=== PATIENT | female | born 1960 | race Caucasian/White ===

== ENCOUNTER 2016-09-19 14:09 | Outpatient (CLI) ==
[2015-06-07 01:53] VITALS: BMI 39.9
[2016-09-19 15:01] LABS: ALBUMIN 3.6 g/dL (3.4-5.0); ALBUMIN/GLOBULIN RATIO 0.97; ANION GAP 14.2; BILIRUBIN,TOTAL 0.49 mg/dL (0.00-1.20); BUN/CREATININE RATIO 12.14; CALCIUM 10.4 mg/dL (8.2-10.2); CHOL/HDL RATIO 7.3 (4.5-5.5); CREATININE 1.4 mg/dL (0.60-1.30); POTASSIUM 4.2 mmol/L (3.5-5.10); TOTAL PROTEIN 7.3 g/dL (6.4-8.2)
== END 2016-09-19 14:10 | disposition home or self-care (01) ==
LOC: LAB 14:09
PROVIDERS: ATTEND Physician Assistant
DX: E78.2 Mixed hyperlipidemia (principal); I10 Essential (primary) hypertension; E66.01 Morbid (severe) obesity due to excess calories
CPT/HCPCS: 36415; 80053; 80061

== ENCOUNTER 2016-10-28 14:33 | Outpatient (CLI) ==
[2015-06-07 01:53] VITALS: BMI 39.9
[2016-10-28 16:02] LABS: ALBUMIN 3.4 g/dL (3.4-5.0); ALBUMIN/GLOBULIN RATIO 0.94; ANION GAP 15.8; BILIRUBIN,TOTAL 0.43 mg/dL (0.00-1.20); BUN/CREATININE RATIO 12.14; CALCIUM 9.8 mg/dL (8.2-10.2); CREATININE 1.4 mg/dL (0.60-1.30); FOLATE 3.2 ng/mL (3.1-20.5); POTASSIUM 3.8 mmol/L (3.5-5.10)
== END 2016-10-28 14:34 | disposition home or self-care (01) ==
LOC: LAB 14:33
PROVIDERS: ATTEND Nurse Practitioner
DX: R13.10 Dysphagia, unspecified (principal); E78.1 Pure hyperglyceridemia; E11.9 Type 2 diabetes mellitus without complications; R53.83 Other fatigue
CPT/HCPCS: 36415; 80053; 82306; 82607; 82746; 83036; 84439; 84443

== ENCOUNTER 2016-12-29 12:55 | Outpatient (CLI) ==
[2015-06-07 01:53] VITALS: BMI 39.9
--- NOTE | 2016-12-30 10:39 | MAMMO ---
EXAM: Bilateral digital screening mammogram History: Baseline screening Findings: MLO and CC views of bilateral breasts demonstrate predominately fatty replaced breast par enchyma. There is an asymmetry seen within the right breast central to the nipple anterior depth. No suspicious microcalcifications. Impression: Indeterminate right breast asymmetry. Recommend further evaluation with spot compressi on views and possible ultrasound. BIRADS 0
== END 2016-12-29 12:56 | disposition home or self-care (01) ==
LOC: RAD 12:55
PROVIDERS: ATTEND Physician Assistant Medical
DX: Z12.31 Encounter for screening mammogram for malignant neoplasm of breast (principal)

== ENCOUNTER 2017-01-02 10:44 | Outpatient (CLI) ==
[2015-06-07 01:53] VITALS: BMI 39.9
--- NOTE | 2017-01-02 11:25 | MAMMO ---
EXAM: Right digital diagnostic mammogram Comparison: Bilateral screening mammogram 12/29/2016 Findings: Right breast density is predominately fatty. Additional spot compression views of the ri ght breast in the MLO and CC projections confirm the right breast anterior asymmetry or nodule. No suspicious microcalcifications. Impression: Indeterminate right breast asymmetry or nodule. Recommend further evaluation with ultr asound. BIRADS 0
--- NOTE | 2017-01-02 12:01 | US ---
EXAM: Right breast ultrasound. History: Right breast asymmetry. Comparison: Right diagnostic mammogram 01/02/2017 Technique: Multiple sonographic images through the right breast were obtained. Color duplex Dopple r was used to interrogate vascular flow. Findings: At 6 o'clock 3 cm from nipple, there is a 0.5 cm anechoic simple cyst. This correlates w ith mammography. Impression: Benign 6 o'clock right breast cyst. Recommend return to routine screening mammography schedule. BIRADS 2
== END 2017-01-02 10:45 | disposition home or self-care (01) ==
LOC: RAD 10:44
PROVIDERS: ATTEND Physician Assistant Medical
DX: R92.8 Other abnormal and inconclusive findings on diagnostic imaging of breast (principal)

== ENCOUNTER 2017-04-14 07:02 | Outpatient (CLI) ==
[2015-06-07 01:53] VITALS: BMI 39.9
[2017-04-14 07:36] LABS: CREATININE 1.67 mg/dL (0.60-1.30)
--- NOTE | 2017-04-14 09:38 | CT ---
EXAM: CT of the abdomen pelvis with and without contrast History: Abdominal pain. Comparison: CT abdomen pelvis 01/08/2015 Technique: Multiplanar CT images through the abdomen pelvis were obtained with and without the admi nistration of IV contrast Findings: Lung bases are clear. No acute osseous abnormalities. Degenerative changes of the spine. No renal stones and no hydronephrosis. The right kidney is smaller than the left. Splenules again seen within the left upper quadrant. The liver is fatty. No peripancreatic inflammation. Stable t iny benign right adrenal nodule. Left adrenal gland is unremarkable. No bowel obstruction. 5.8 cm fat containing ventral hernia. No bowel obstruction. The appendix is normal. No bladder wall thi ckening. No abnormal enhancement of the pancreas. No discrete gallstones identified by CT. No free air and no ascites. No perirectal inflammation. Adnexal structures appear appropriate for patient' s age. Impression: 1. No acute intra-abdominal or pelvic process. 2. Enlarged fatty liver. 3. Fat-containing ventral hernia. 4. Stable tiny benign right adrenal adenoma.
== END 2017-04-14 07:03 | disposition home or self-care (01) ==
LOC: RAD 07:02
PROVIDERS: ATTEND Physician Assistant Medical
DX: R10.9 Unspecified abdominal pain (principal)
CPT/HCPCS: 36415; 82565

== ENCOUNTER 2017-04-20 11:54 | Emergency (ER) ==
[2017-04-20 12:01] VITALS: BP 162/89; TEMP 100.1; BMI 43.2
[2017-04-20] MEDS ORDERED: TORADOL IM STA (12:14)
[2017-04-20 12:35] LABS: BASOPHILS # (AUTO) 0.1 K/uL (0-0.2); BASOPHILS % (AUTO) 0.7 % (0.0-3.0); EOSINOPHILS # (AUTO) 0.6 K/ul (0.0-0.7); EOSINOPHILS % (AUTO) 4.2 % (0.0-7.0); HEMATOCRIT 41.7 % (37.0-47.0); HEMOGLOBIN 14.2 g/dl (12.0-16.0); IMMATURE GRANULOCYTE % (AUTO) 0.2 % (0.0-5.0); LYMPHOCYTES # (AUTO) 3.8 K/uL (0.60-3.4); MEAN CORPUSCULAR HEMOGLOBIN 32.1 pg (27.0-31.0); MEAN CORPUSCULAR HGB CONC 34.1 (31.8-35.4); MEAN CORPUSCULAR VOLUME 94.3 fl (81.0-99.0); MONOCYTES # (AUTO) 0.9 K/uL (0.4-2.0); MONOCYTES % (AUTO) 6.3 (0-10); NEUTROPHILS # (AUTO) 8.3 K/ul (2.0-6.9); NEUTROPHILS % (AUTO) 60.6; PLATELET COUNT 284 10^3/uL (140-440); RED BLOOD COUNT 4.42 10^6/ul (4.20-5.40); WHITE BLOOD COUNT 13.71 K/ul (4.6-10.2)
[2017-04-20 12:48] LABS: BILIRUBIN,URINE 1+ (NEGATIVE); KETONES,URINE Trace (NEGATIVE); LEUKOCYTE ESTERASE ,URINE 1+ (NEGATIVE); NITRITE,URINE Negative (NEGATIVE); PROTEIN,URINE 3+ (NEGATIVE); URINE, BLOOD 3+ (NEGATIVE)
[2017-04-20 12:53] LABS: ALBUMIN 3.9 g/dL (3.4-5.0); ALBUMIN/GLOBULIN RATIO 1.11; ANION GAP 18.5; BILIRUBIN,TOTAL 0.46 mg/dL (0.00-1.20); BUN/CREATININE RATIO 6.7; CALCIUM 10.4 mg/dL (8.2-10.2); CREATININE 1.64 mg/dL (0.60-1.30); POTASSIUM 3.5 mmol/L (3.5-5.10); TOTAL PROTEIN 7.4 g/dL (6.4-8.2)
[2017-04-20 12:57] LABS: ADD URINE MICROSCOPIC YES
[2017-04-20 13:05] VITALS: BMI 43.2
--- NOTE | 2017-04-20 13:45 | CT ---
EXAM: CT of the abdomen pelvis without contrast History: Abdominal pain. Comparison: CT abdomen pelvis 04/14/2017 Technique: Multiplanar CT images through the abdomen pelvis were obtained without the administration of IV contrast Findings: Subsegmental atelectasis seen at the lung bases. No acute osseous abnormalities. Enlarged fatty liver. No discrete gallstones identified by CT. Mild atherosclerotic vascular calci fications. No peripancreatic inflammation. Stable small benign right adrenal adenoma. Left adrena l gland is unremarkable. No renal stones and no hydronephrosis. Splenules are again seen. No joaquín l obstruction. No free air. No ascites. No change in the fat containing ventral hernia. Bladder is not well distended. Adnexal structures appear appropriate for patient's age. No perirectal inflam mation. The appendix is not dilated or inflamed. Impression: 1. No acute intra-abdominal or pelvic process. 2. Enlarged fatty liver. 3. Stable small benign right adrenal adenoma. 4. No change in the fat containing ventral hernia.
[2017-04-20] MEDS ORDERED: LIDOCAINE 1 % AMP 5 ML (SUTURES) IM STA (14:02)
[2017-04-20] MEDS ORDERED: ROCEPHIN IM STA (14:02)
--- NOTE | 2017-04-20 14:06 | ED.PDOC ---
General ED Provider: Dr. CRICKET PAK Chief Complaint: Urinary Problem Stated Complaint: dysuria Time Seen by Physician: 12:00 (seen with nursing staff at all times ) Mode of Arrival: Walk-In Information Source: Patient Exam Limitations: No limitations Primary Care Provider: HEMALATHA NAPIER Nursing and Triage Documentation Reviewed and Agree: Yes Complaint Exam - Complaint/Exam Patient Complains of: Reports: Dysuria Onset/Duration: 3 days Symptoms Are: Still present Timing: Intermittent Initial Severity: Moderate Current Severity: Moderate Location of Pain: Reports: Suprapubic Character: Reports: Burning Aggravating: Reports: Urination Alleviating: Reports: None Associated Signs and Symptoms: Reports: Dysuria. Denies: Diaphoresis, Back pain , Fever, Hematuria, Constipation, Blood in stool, Rectal pain, Appetite change, Nausea, Vomiting, Decreased urine output, Increased urine frequency, Increased thirst, Decreased activity, Lethargy, Abdominal Pain, Bubble bath use, Vaginal bleeding, Vaginal discharge, Genital swelling, Genital blisters, Retained foreign body Related History: Reports: Similar episode Ectopic Risk Factors: Reports: None Ovarian Torsion Risk Factors: Reports: None Surgical Obstruction Risk Factors: Reports: None RH Status: Unknown Related Surgical History: Reports: None Abdominal Findings: Present: None Differential Diagnoses: Renal Colic, Ureteral Stone, UTI Review of Systems - Review Of Systems Constitutional: Reports: No symptoms Eyes: Reports: No symptoms Ears, Nose, Mouth, Throat: Reports: No symptoms Respiratory: Reports: No symptoms Cardiac: Reports: No symptoms GI: Reports: No symptoms : Reports: Dysuria Musculoskeletal: Reports: No symptoms Skin: Reports: No symptoms Neurological: Reports: No symptoms Endocrine: Reports: No symptoms Hematologic/Lymphatic: Reports: No symptoms All Other Systems: Reviewed and Negative Past Medical History - Past Medical History Previously Healthy: Yes Endocrine: Reports: Dyslipidemia Cardiovascular: Reports: Hypertension Respiratory: Reports: None Hematological: Reports: None Gastrointestinal: Reports: GERD Genitourinary: Reports: None Neuro/Psych: Reports: Anxiety, Depression, Bipolar Disorder Musculoskeletal: Reports: None Cancer: Reports: None Last Menstrual Period: menopause Other Pertinent Past Medical History: Valcular problems - Surgical History General Surgical History: Reports: Other (Spleenectomy ) - Family History Family History: Reports: Unknown - Social History Smoking Status: Current some day smoker Hx Substance Use: No Alcohol Screening: None Physical Exam - Physical Exam Appearance: Well-appearing, No pain distress, Well-nourished Eyes: MILKA, EOMI, Conjunctiva clear ENT: Ears normal, Nose normal, Oropharynx normal Respiratory: Airway patent, Breath sounds clear, Breath sounds equal, Respirations nonlabored Cardiovascular: RRR, Pulses normal, No rub, No murmur GI/: Soft, Nontender, No masses, Bowel sounds normal, No Organomegaly Musculoskeletal: Normal strength, ROM intact, No edema, No calf tenderness Skin: Warm, Dry, Normal color Neurological: Sensation intact, Motor intact, Reflexes intact, Cranial nerves intact, Alert, Oriented Psychiatric: Affect appropriate, Mood appropriate Interpretation - Radiology Interpretation Radiology Interpretation By: Radiologist Radiology Results: No acute changes Exam Interpreted: CT Scan Critical Care Note - Critical Care Note Total Time (mins): 0 Course - Course Hematology/Chemistry: 04/20/17 12:26 04/20/17 12:26 Orders, Labs, Meds: Lab Review 04/20/17 04/20/17 12:26 12:36 WBC 13.71 H RBC 4.42 Hgb 14.2 Hct 41.7 MCV 94.3 MCH 32.1 H MCHC 34.1 RDW Coeff of Jose 14.5 Plt Count 284 Immature Gran % (Auto) 0.2 Neut % (Auto) 60.6 Lymph % (Auto) 28.0 [place] % (Auto) 6.3 Eos % (Auto) 4.2 Baso % (Auto) 0.7 Immature Gran # (Auto) 0.0 Neut # 8.3 H Lymph # 3.8 H [place] # 0.9 Eos # 0.6 Baso # 0.1 Sodium 142 Potassium 3.5 Chloride 98 Carbon Dioxide 29 Anion Gap 18.5 BUN 11 Creatinine 1.64 H Estimated GFR (MDRD) 32.00 BUN/Creatinine Ratio 6.70 Glucose 147 H Calcium 10.4 H Total Bilirubin 0.46 AST 36 ALT 35 Alkaline Phosphatase 100 H Total Protein 7.4 Albumin 3.9 Globulin 3.5 Albumin/Globulin Ratio 1.11 Urine Color Yellow Urine Clarity Turbid Urine pH 6.0 Ur Specific [place] >=1.030 Urine Protein 3+ Urine Glucose (UA) Negative Urine Ketones Trace Urine Blood 3+ Urine Nitrite Negative Urine Bilirubin 1+ Urine Urobilinogen 0.2 Ur Leukocyte Esterase 1+ Urine Microscopic WBC Tntc Ur Squamous Epith Cells Not present Orders Category Date Time Status BLOOD CULTURE Stat LAB 04/20/17 12:26 Received CBC W/ AUTO DIFF Stat LAB 04/20/17 12:26 Completed COMPREHENSIVE METABOLIC PANEL Stat LAB 04/20/17 12:26 Completed URINALYSIS C & S IF INDICATED Stat LAB 04/20/17 12:36 Completed URINE CULTURE Stat LAB 04/20/17 12:59 Received Ceftriaxone Sodium [Rocephin] MEDS 04/20/17 14:02 Stat 1 gm IM ONCE STA Ketorolac Tromethamine [Toradol] MEDS 04/20/17 12:14 Discontinued 30 mg IM ONCE STA Lidocaine HCl/Pf [Lidocaine 1 % Amp 5 ml (Sutures)] MEDS 04/20/17 14:02 Stat 2.1 ml IM ONCE STA CT ABD/PEL WO RENAL STONE PROT Stat RADS 04/20/17 13:11 Completed Medications Discontinued Medications Generic Name Dose Route Start Last Admin Trade Name Freq PRN Reason Stop Dose Admin Ceftriaxone Sodium 1 gm 04/20/17 14:02 Rocephin IM 04/20/17 14:03 ONCE STA Ketorolac Tromethamine 30 mg 04/20/17 12:14 04/20/17 12:28 Toradol IM 04/20/17 12:15 30 mg ONCE STA Administration Lidocaine HCl 2.1 ml 04/20/17 14:02 Lidocaine 1 % Amp 5 Ml (Sutures) IM 04/20/17 14:03 ONCE STA Vital Signs: Temp Pulse Resp BP Pulse Ox 04/20/17 11:55 100.1 F H 97 H 20 162/89 H 95 Departure - Departure Time of Disposition: 14:06 Disposition: HOME SELF-CARE Discharge Problem: Urinary symptoms, Urinary tract infectious disease, Renal insufficiency Instructions: Urinary Tract Infection in Women (ED), Chronic Kidney Disease (ED ) Condition: Good Pt referred to PMD for follow-up: Yes Additional Instructions: Please call your Family Physician as soon as possible to schedule a follow-up appointment. Prescriptions: Ciprofloxacin HCl [Cipro] 500 mg PO Q12HR #10 tablet Allergies/Adverse Reactions: Allergies No Known Allergies Allergy (Verified 01/12/15 15:41) Home Medications: Ambulatory Orders Atorvastatin Calcium [Lipitor] 20 mg PO BEDTIME 03/31/14 Fluoxetine HCl 20 mg PO BID 03/31/14 Lamotrigine [Lamictal] 100 mg PO BID 03/31/14 Lurasidone HCl [Latuda] 80 mg PO BEDTIME 03/31/14 Ranitidine HCl 150 mg PO BID 03/31/14 Metoprolol Succinate 50 mg PO DAILY 06/07/15 Hydrochlorothiazide 12.5 mg PO DAILY PRN #30 capsule 06/10/15 Losartan Potassium 100 mg PO DAILY #30 tablet 06/10/15 Ciprofloxacin HCl [Cipro] 500 mg PO Q12HR #10 tablet 04/20/17 Disposition Discussed With: Patient
== END 2017-04-20 14:41 | disposition home or self-care (01) ==
LOC: MERGE 11:54 → ED 11:54
DX: N39.0 Urinary tract infection, site not specified (principal); N28.9 Disorder of kidney and ureter, unspecified; F17.210 Nicotine dependence, cigarettes, uncomplicated; Z79.899 Other long term (current) drug therapy
CPT/HCPCS: 36415; 74176; 80053; 81001; 85025; 87040; 87086; 96372; 99283

== ENCOUNTER 2017-05-30 10:21 | Emergency (ER) ==
[2017-05-30 10:32] VITALS: BP 130/69; TEMP 97; BMI 41.4
--- NOTE | 2017-05-30 11:08 | ED.PDOC ---
General ED Provider: Dr. MOON FRIEDMAN Chief Complaint: Altered Mental Status Stated Complaint: Woke up this morning with nausea/vomitting x 3. No appetite since then. Hasn't taken her morning meds. Family concerned because she was responding very slowly to questions although appeared oriented and appropriate. Time Seen by Physician: 11:05 Mode of Arrival: Stretcher Information Source: Patient Exam Limitations: No limitations Primary Care Provider: HEMALATHA NAPIER Nursing and Triage Documentation Reviewed and Agree: Yes Neurological Complaint Exam - Altered Mental Status Complaint/Exam Current Mental Status: Other (responding appropriately but very slowly) Last Known Well: last evening Onset: Sudden Duration: since noticed by family this am, approx 1 hour ago, N/V onset approx 4 hrs Symptoms Are: Resolved (Nausea & vomitting resolved about 3 hrs ago. Slowness has gradually resolved since arrival in ED.) Timing: Constant Episodes Lasting: Hours Initial Severity: Moderate Current Severity: Mild (Sister here with her says she was noticably slow when sister arrived in ED but quickly resolved) Eye Deviation Present: No Character: Reports: Responsiveness Aggravating: Reports: None Alleviating: Reports: None Associated Signs and Symptoms: Reports: Nausea Cardiac Risk Factors: Reports: Smoking CVA Risk Factors: Reports: Smoking Related Surgical History: Reports: None (Abdominal surgeries: c-sxn x2, splenectomy) Carotid Bruit Present: No Nystagmus Present: No Gag Reflex Present: Yes Meningeal Signs Positive: No Focal Weakness: Present: None Focal Sensory Loss: Present: None Gait: Normal Aidiuj-gv-Dess: Normal Findings Romberg Test Positive: No Babinski Sign: Negative Right, Negative Left Heel to Toe Normal: Yes Signs of Injury: Present: Normal findings Thrombolytics Considered: No Differential Diagnoses: Overdose (Pt thinks she might have taken 2 of her Seraquel last night, accidentally.), Other (gastroenteritis) Review of Systems - Review Of Systems Constitutional: Reports: Chills, Loss of appetite Eyes: Reports: No symptoms Ears, Nose, Mouth, Throat: Reports: No symptoms Respiratory: Reports: No symptoms Cardiac: Reports: No symptoms GI: Reports: Nausea, Poor appetite, Vomiting : Reports: No symptoms Skin: Reports: No symptoms Neurological: Reports: Other (felt "slower than usual" earlier today, resolved while in ED) All Other Systems: Reviewed and Negative Past Medical History - Past Medical History Previously Healthy: Yes Endocrine: Reports: Dyslipidemia Cardiovascular: Reports: Hypertension Respiratory: Reports: None Hematological: Reports: None Gastrointestinal: Reports: GERD Genitourinary: Reports: CKD (Stage 3) Neuro/Psych: Reports: Anxiety, Depression, Bipolar Disorder Musculoskeletal: Reports: None Cancer: Reports: None Last Menstrual Period: unknown Other Pertinent Past Medical History: Valcular problems - Surgical History General Surgical History: Reports: Other (Spleenectomy, c-sxn x2) - Family History Family History: Reports: Unknown - Social History Smoking Status: Current every day smoker, Light tobacco smoker Amount Smokes or Chewing Tobacco Used Daily: 09/14 PPD Hx Substance Use: No Alcohol Screening: None Lives: With family - Immunizations Tetanus Shot up to Date: No Influenza Vaccine within 12 Months: No Pneumococcal Vaccine up to Date: No Physical Exam - Physical Exam Appearance: Well-appearing, Obese Ill-appearing: None Pain Distress: None Eyes: MILKA, EOMI, Conjunctiva clear ENT: Ears normal, Nose normal, Oropharynx normal Neck: Supple Respiratory: Airway patent, Breath sounds clear, Breath sounds equal, Respirations nonlabored Cardiovascular: RRR, Pulses normal, No rub, No murmur GI/: Soft, Nontender, No masses, Bowel sounds normal, No Organomegaly Musculoskeletal: Normal strength Skin: Warm, Dry, Normal color Neurological: Sensation intact, Motor intact, Reflexes intact, Cranial nerves intact, Alert, Oriented Psychiatric: Affect appropriate, Mood appropriate Critical Care Note - Critical Care Note Total Time (mins): 0 Course - Course Hematology/Chemistry: 05/30/17 11:44 05/30/17 11:44 Orders, Labs, Meds: Lab Review 05/30/17 05/30/17 05/30/17 11:44 11:44 13:28 WBC 14.96 H RBC 4.31 Hgb 13.8 Hct 39.7 MCV 92.1 MCH 32.0 H MCHC 34.8 RDW Coeff of Jose 13.7 Plt Count 281 Immature Gran % (Auto) 0.3 Neut % (Auto) 79.2 Lymph % (Auto) 16.6 [place] % (Auto) 2.5 Eos % (Auto) 0.9 Baso % (Auto) 0.5 Immature Gran # (Auto) 0.0 Neut # 11.8 H Lymph # 2.5 [place] # 0.4 Eos # 0.1 Baso # 0.1 Sodium 140 Potassium 3.4 L Chloride 102 Carbon Dioxide 29 Anion Gap 12.4 BUN 13 Creatinine 1.53 H Estimated GFR (MDRD) 35.00 BUN/Creatinine Ratio 8.49 Glucose 145 H Calcium 10.1 Total Bilirubin 0.46 AST 24 ALT 25 Alkaline Phosphatase 102 H Total Protein 7.3 Albumin 3.7 Globulin 3.6 Albumin/Globulin Ratio 1.03 Urine Color Yellow Urine Clarity Clear Urine pH 6.5 Ur Specific [place] 1.020 Urine Protein Negative Urine Glucose (UA) Negative Urine Ketones Negative Urine Blood Negative Urine Nitrite Negative Urine Bilirubin Negative Urine Urobilinogen 0.2 Ur Leukocyte Esterase Negative Orders Category Date Time Status CBC W/ AUTO DIFF Stat LAB 05/30/17 11:44 Completed COMPREHENSIVE METABOLIC PANEL Stat LAB 05/30/17 11:44 Completed URINALYSIS C & S IF INDICATED Stat LAB 05/30/17 13:28 Completed Vital Signs: Temp Pulse Resp BP Pulse Ox 05/30/17 10:23 97 F L 60 16 130/69 96 Departure - Departure Time of Disposition: 14:20 Disposition: HOME SELF-CARE Discharge Problem: Gastritis Instructions: Gastritis (ED) Condition: Good Pt referred to PMD for follow-up: No (if symptoms persist for 3 days, see doctor ) Allergies/Adverse Reactions: Allergies No Known Allergies Allergy (Verified 05/30/17 10:32) Home Medications: Ambulatory Orders Atorvastatin Calcium [Lipitor] 20 mg PO BEDTIME 03/31/14 Fluoxetine HCl 20 mg PO BID 03/31/14 Lamotrigine [Lamictal] 150 mg PO BID 03/31/14 Lurasidone HCl [Latuda] 80 mg PO BEDTIME 03/31/14 Ranitidine HCl 300 mg PO BID 03/31/14 Metoprolol Succinate 50 mg PO DAILY 06/07/15 Losartan Potassium 100 mg PO DAILY #30 tablet 06/10/15 Bupropion HCl [Bupropion Xl] 300 mg PO DAILY 05/30/17 Diazepam 5 mg PO TID PRN 05/30/17 Hydrochlorothiazide 25 mg PO DAILY PRN 05/30/17 Linagliptin [Tradjenta] 5 mg PO DAILY 05/30/17 Quetiapine Fumarate [Seroquel] 200 mg PO BEDTIME 05/30/17 Disposition Discussed With: Patient, Family (Advised that concussion information is FYI and she does not need to be awakened when she sleeps)
[2017-05-30 11:51] LABS: BASOPHILS # (AUTO) 0.1 K/uL (0-0.2); BASOPHILS % (AUTO) 0.5 % (0.0-3.0); EOSINOPHILS # (AUTO) 0.1 K/ul (0.0-0.7); EOSINOPHILS % (AUTO) 0.9 % (0.0-7.0); HEMATOCRIT 39.7 % (37.0-47.0); HEMOGLOBIN 13.8 g/dl (12.0-16.0); IMMATURE GRANULOCYTE % (AUTO) 0.3 % (0.0-5.0); LYMPHOCYTES # (AUTO) 2.5 K/uL (0.60-3.4); LYMPHOCYTES % (AUTO) 16.6 (10.0-50.0); MEAN CORPUSCULAR HGB CONC 34.8 (31.8-35.4); MEAN CORPUSCULAR VOLUME 92.1 fl (81.0-99.0); MONOCYTES # (AUTO) 0.4 K/uL (0.4-2.0); MONOCYTES % (AUTO) 2.5 (0-10); NEUTROPHILS # (AUTO) 11.8 K/ul (2.0-6.9); NEUTROPHILS % (AUTO) 79.2; PLATELET COUNT 281 10^3/uL (140-440); RED BLOOD COUNT 4.31 10^6/ul (4.20-5.40); WHITE BLOOD COUNT 14.96 K/ul (4.6-10.2)
[2017-05-30 12:09] LABS: ALBUMIN 3.7 g/dL (3.4-5.0); ALBUMIN/GLOBULIN RATIO 1.03; ANION GAP 12.4; BILIRUBIN,TOTAL 0.46 mg/dL (0.00-1.20); BUN/CREATININE RATIO 8.49; CALCIUM 10.1 mg/dL (8.2-10.2); CREATININE 1.53 mg/dL (0.60-1.30); POTASSIUM 3.4 mmol/L (3.5-5.10); TOTAL PROTEIN 7.3 g/dL (6.4-8.2)
[2017-05-30 13:37] LABS: BILIRUBIN,URINE Negative (NEGATIVE); KETONES,URINE Negative (NEGATIVE); LEUKOCYTE ESTERASE ,URINE Negative (NEGATIVE); NITRITE,URINE Negative (NEGATIVE); PH,URINE 6.5 (5-9); PROTEIN,URINE Negative (NEGATIVE); URINE, BLOOD Negative (NEGATIVE)
[2017-05-30 13:57] LABS: ADD URINE MICROSCOPIC NO
--- NOTE | 2017-05-30 15:42 | CT ---
EXAM: CT of the head without contrast History: Head trauma. Comparison: Head CT 06/06/2015 Technique: Multiplanar CT images through the head were obtained without the administration of IV con trast Findings: The visualized paranasal sinuses are clear in general. Small chronic right mastoid effusi on. Left mastoid air cells are clear in general. No acute calvarial abnormalities. Intracranially there is stable atrophy. No dominant mass or midline shift. No hydrocephalous. No a cute intracranial hemorrhage or abnormal extraaxial fluid collections. Impression: No acute intracranial process. Stable atrophy.
== END 2017-05-30 16:22 | disposition home or self-care (01) ==
LOC: ED 10:21
DX: K29.70 Gastritis, unspecified, without bleeding (principal); R41.82 Altered mental status, unspecified; F17.210 Nicotine dependence, cigarettes, uncomplicated; Z79.899 Other long term (current) drug therapy
CPT/HCPCS: 36415; 80053; 81001; 85025; 99283

== ENCOUNTER 2017-08-30 19:54 | Observation (INO) ==
[2017-08-30] MEDS ORDERED: ASPIRIN CHEWABLE PO STA (19:59)
--- NOTE | 2017-08-30 20:08 | ED.PDOC ---
General ED Provider: Dr. JENNIFER HOOKS Chief Complaint: Chest Pain Stated Complaint: Hurting in the left side of the chest for 4-5 days, radiates to left arm, non exertional. Time Seen by Physician: 20:08 Mode of Arrival: Ambulance Information Source: Patient Primary Care Provider: HEMALATHA NAPIER Nursing and Triage Documentation Reviewed and Agree: No Reviewed sepsis parameters & appropriate labs ordered?: Yes System Inflammatory Response Syndrome: Not Applicable Sepsis Protocol: For patient's 13 years and over: Temp is 96.8 and below OR 101 and greater Pulse >90 BPM Resp >20/minute Acutely Altered Mental Status Are patient's symptoms suggestive of a new infection, such as: -Pneumonia -Skin, Soft Tissue -Endocarditis -UTI -Bone, Joint Infection -Implantable Device -Acute Abdominal Infection -Wound Infection -Meningitis -Blood Stream Catheter Infection -Unknown Cardiovascular Complaint Exam - Chest Pain Complaint/Exam Onset: Gradual Symptoms Are: Still present Timing: Constant Initial Severity: Moderate Current Severity: Mild Location: Reports: Midsternal, Right lateral Pain Radiates: Reports: Left shoulder Character: Reports: Dull, Aching, Tightness Aggravating: Reports: None Alleviating: Reports: None Associated Signs and Symptoms: Reports: Short of air. Denies: Diaphoresis, Nausea, Vomiting, Fever, Palpitations, Cough, Hemoptysis, Back pain, Abdominal pain, Dizziness, Calf pain, Calf swelling Related Surgical History: Reports: None History of Healthcare-Acquired Pneumonia: Reports: No AMI/ACS Risk Factors: Reports: None TAD Risk Factors: Reports: None Pulmonary Embolism Risk Factors: Reports: None Prior Care for this Complaint: No Recent Stress Test: No Recent Echo/LV Function: No JVD Present: No Subcutaneous Emphysema Present: No Diminshed Breath Sounds: No Reproducible Chest Wall Pain: Yes Bilateral Pulses Present: Yes Unequal Pulses Noted: No If Risk Factors for AMI/ACS Consider: EKG, Cardiac Enzymes, Serial Studies, Oxygen, Aspirin (EMT gave one) Differential Diagnoses: ACS, Unstable Angina, Chest Wall Pain, GI Diseasae Review of Systems - Review Of Systems Constitutional: Reports: No symptoms Eyes: Reports: No symptoms Ears, Nose, Mouth, Throat: Reports: No symptoms Respiratory: Reports: No symptoms Cardiac: Reports: Chest pain GI: Reports: No symptoms : Reports: No symptoms Musculoskeletal: Reports: No symptoms Skin: Reports: No symptoms Neurological: Reports: No symptoms Endocrine: Reports: No symptoms Hematologic/Lymphatic: Reports: No symptoms All Other Systems: Reviewed and Negative Past Medical History - Past Medical History Previously Healthy: Yes Endocrine: Reports: Dyslipidemia Cardiovascular: Reports: Hypertension Respiratory: Reports: None Hematological: Reports: None Gastrointestinal: Reports: GERD Genitourinary: Reports: CKD (Stage 3) Neuro/Psych: Reports: Anxiety, Depression, Bipolar Disorder Musculoskeletal: Reports: None Cancer: Reports: None Last Menstrual Period: none Other Pertinent Past Medical History: Valcular problems - Surgical History General Surgical History: Reports: Other (Spleenectomy, c-sxn x2) - Family History Family History: Reports: Unknown - Social History Smoking Status: Current every day smoker, Light tobacco smoker Smoking Cessation Counseling Time: > 3 min - 10 min Hx Substance Use: No Alcohol Screening: None - Immunizations Influenza Vaccine within 12 Months: No Pneumococcal Vaccine up to Date: No Physical Exam - Physical Exam Appearance: Well-appearing, No pain distress, Well-nourished Eyes: MILKA, EOMI, Conjunctiva clear ENT: Ears normal, Nose normal, Oropharynx normal Respiratory: Airway patent, Breath sounds clear, Breath sounds equal, Respirations nonlabored Cardiovascular: RRR, Pulses normal, No rub, No murmur GI/: Soft, Nontender, No masses, Bowel sounds normal, No Organomegaly Musculoskeletal: Normal strength, ROM intact, No edema, No calf tenderness Skin: Warm, Dry, Normal color Neurological: Sensation intact, Motor intact, Reflexes intact, Cranial nerves intact, Alert, Oriented Psychiatric: Affect appropriate, Mood appropriate Interpretation - Radiology Interpretation Radiology Interpretation By: ED Physician Radiology Results: Negative Exam Interpreted: CXR, CT Scan Critical Care Note - Critical Care Note Total Time (mins): 20 Course - Course Hematology/Chemistry: 08/30/17 20:00 08/30/17 20:00 Orders, Labs, Meds: Lab Review 08/30/17 08/30/17 08/30/17 20:00 20:00 20:00 WBC 16.21 H RBC 4.14 L Hgb 13.0 Hct 38.5 MCV 93.0 MCH 31.4 H MCHC 33.8 RDW Coeff of Jose 14.0 Plt Count 281 Neutrophils % (Manual) 34.0 L Lymphocytes % (Manual) 59.0 H Monocytes % (Manual) 4.0 Eosinophils % (Manual) 3.0 Anisocytosis Not present D-Dimer (Manual) Sodium 140 Potassium 3.3 L Chloride 103 Carbon Dioxide 26 Anion Gap 14.3 BUN 11 Creatinine 1.29 Estimated GFR (MDRD) 43.00 BUN/Creatinine Ratio 8.52 Glucose 97 Calcium 10.1 Total Bilirubin 0.4 AST 21 ALT 19 Alkaline Phosphatase 94 Total Creatine Kinase 132 CK-MB (CK-2) 2.9 CK-MB (CK-2) % 2.74131 Troponin I < 0.0100 B-Natriuretic Peptide 44 Total Protein 6.6 Albumin 3.4 Globulin 3.2 Albumin/Globulin Ratio 1.06 Urine Color Urine Clarity Urine pH Ur Specific [place] Urine Protein Urine Glucose (UA) Urine Ketones Urine Blood Urine Nitrite Urine Bilirubin Urine Urobilinogen Ur Leukocyte Esterase Urine Microscopic WBC Ur Squamous Epith Cells Urine Bacteria Urine Mucus Urine Opiates Screen Ur Oxycodone Screen Urine Methadone Screen Ur Propoxyphene Screen Ur Barbiturates Screen U Tricyclic Antidepress Ur Phencyclidine Scrn Ur Amphetamine Screen U Methamphetamines Scrn U Benzodiazepines Scrn Urine Cocaine Screen U Cannabinoids Screen 08/30/17 08/30/17 08/30/17 20:00 20:24 20:24 WBC RBC Hgb Hct MCV MCH MCHC RDW Coeff of Jose Plt Count Neutrophils % (Manual) Lymphocytes % (Manual) Monocytes % (Manual) Eosinophils % (Manual) Anisocytosis D-Dimer (Manual) 685.99 Sodium Potassium Chloride Carbon Dioxide Anion Gap BUN Creatinine Estimated GFR (MDRD) BUN/Creatinine Ratio Glucose Calcium Total Bilirubin AST ALT Alkaline Phosphatase Total Creatine Kinase CK-MB (CK-2) CK-MB (CK-2) % Troponin I B-Natriuretic Peptide Total Protein Albumin Globulin Albumin/Globulin Ratio Urine Color Yellow Urine Clarity Clear Urine pH 5.5 Ur Specific [place] 1.010 Urine Protein Negative Urine Glucose (UA) Negative Urine Ketones Negative Urine Blood Negative Urine Nitrite Negative Urine Bilirubin Negative Urine Urobilinogen 0.2 Ur Leukocyte Esterase Trace Urine Microscopic WBC 0-2 Ur Squamous Epith Cells 2-5 Urine Bacteria 1+ Urine Mucus Trace Urine Opiates Screen Negative Ur Oxycodone Screen Negative Urine Methadone Screen Negative Ur Propoxyphene Screen Negative Ur Barbiturates Screen Negative U Tricyclic Antidepress Negative Ur Phencyclidine Scrn Negative Ur Amphetamine Screen Negative U Methamphetamines Scrn Negative U Benzodiazepines Scrn Negative Urine Cocaine Screen Negative U Cannabinoids Screen Positive Orders Category Date Time Status EKG-(ED ONLY) Stat CARDIO 08/30/17 19:59 Ordered NPO REMINDER: IMAGING ONCE CARE 08/30/17 21:32 Completed B-TYPE NATRIURETIC PEPTIDE Stat LAB 08/30/17 20:00 Completed CBC W/ AUTO DIFF Stat LAB 08/30/17 20:00 Completed COMPREHENSIVE METABOLIC PANEL Stat LAB 08/30/17 20:00 Completed CREATINE KINASE Stat LAB 08/30/17 20:00 Completed D-DIMER Stat LAB 08/30/17 20:00 Completed MANUAL DIFFERENTIAL Stat LAB 08/30/17 20:00 Completed TROPONIN I Stat LAB 08/30/17 20:00 Completed URINALYSIS C & S IF INDICATED Stat LAB 08/30/17 20:24 Completed URINE CULTURE Stat LAB 08/30/17 20:24 Received URINE DRUG SCREEN (RAPID FOR ED) [DRUG SCREEN, URINE, LAB 08/30/17 20:24 Completed RAPID] Stat CHEST, 2 VIEWS PA & LAT Stat RADS 08/30/17 19:[address] CHEST PE PROTOCOL Stat RADS 08/30/17 21:32 Completed Vital Signs: Temp Pulse Resp BP Pulse Ox 08/30/17 19:55 97.1 F L 66 18 165/86 H 97 DORA Risk Score Age >/= 65: No >/= 3 CAD Risk Factors: Yes Known CAD (Stenosis >/= 50%): No ASA Use in Past 7 Days: Yes Severe Angina (>/= 2 episodes in 24 hours): No EKG ST Changes >/= 0.5mm: No Postive Cardiac Marker: No DORA Total Score: 2 DORA Risk Score: Risk Score Odds of by 30D 0 0.1 (0.1-0.2) 1 0.3 (0.2-0.3) 2 0.4 (0.3-0.5) 3 0.7 (0.6-0.9) 4 1.2 (1.0-1.5) 5 2.2 (1.9-2.6) 6 3.0 (2.5-3.6) 7 4.8 (3.8-6.1) Departure - Departure Time of Disposition: 20:38 Disposition: PLACED OBSERVATION Discharge Problem: Chest pain Instructions: Chest Wall Pain (ED) Condition: Good Pt referred to PMD for follow-up: Yes Allergies/Adverse Reactions: Allergies No Known Allergies Allergy (Verified 08/30/17 20:00) Home Medications: Ambulatory Orders Atorvastatin Calcium [Lipitor] 20 mg PO BEDTIME 03/31/14 Fluoxetine HCl 20 mg PO BID 03/31/14 Ranitidine HCl 300 mg PO BID 03/31/14 Metoprolol Succinate 50 mg PO DAILY 06/07/15 Bupropion HCl [Bupropion Xl] 300 mg PO DAILY 05/30/17 Diazepam 5 mg PO TID PRN 05/30/17 Linagliptin [Tradjenta] 5 mg PO DAILY 05/30/17 Quetiapine Fumarate [Seroquel] 100 mg PO BEDTIME 05/30/17 Losartan/Hydrochlorothiazide [Losartan-Hctz 100-25 mg Tab] 1 each PO DAILY 08/30 Disposition Discussed With: Patient
--- NOTE | 2017-08-30 22:36 | CT ---
EXAM: CT pulmonary angiogram. HISTORY: Chest pain. Elevated D-dimer. Evaluate for pulmonary embolism. PROCEDURE: After the intravenous injection of contrast a CT pulmonary angiogram was performed with c ontiguous axial CT images of the chest and multiplanar and 3-D reformats. FINDINGS: There is normal enhancement of the pulmonary arteries with no evidence of pulmonary embolis m. The heart is within normal limits in size. The thoracic aorta is within normal limits in diamete r. There is ill-defined soft tissue density in the right paratracheal region and right superior media stinum which appears to represent an enlarged right lobe of the thyroid gland. There is a 1.1 cm nod ule in the left lobe of the thyroid gland. No infiltrate or consolidation. There are degenerative ch anges in the spine. Impression: No evidence of pulmonary embolism. Ill-defined soft tissue density in the right paratracheal region and right superior mediastinum which appears to represent an enlarged right lobe of the thyroid gland. 1.1 cm thyroid nodule as described . Recommend outpatient ultrasound for further evaluation.
--- NOTE | 2017-08-30 22:36 | DI ---
EXAM: Chest two views HISTORY: Chest pain COMPARISON: 10/06/2011 TECHNIQUE: Two views of the chest were performed FINDINGS: The lungs are clear. There is no pleural effusion or pneumothorax. The heart is normal i n size. The mediastinal contour is normal. There are no acute abnormalities of the bones. IMPRESSION: No acute cardiopulmonary process.
[2017-08-30] MEDS ORDERED: TYLENOL PO PRN (22:51)
[2017-08-30] MEDS ORDERED: VALIUM PO PRN (22:52)
[2017-08-30] MEDS ORDERED: SODIUM CHLORIDE 1,000 ML IV SCH (23:00)
[2017-08-30 23:59] VITALS: BMI 37.2
[2017-08-31] MEDS ORDERED: LOVENOX ONE (00:16)
[2017-08-31] MEDS: LOVENOX SUBCUT SCH ×2 (00:27→10:01)
[2017-08-31] MEDS ORDERED: NON-FORMULARY MEDICATION (Losartan/Hydrochlorothiazide [Losartan-Hctz 100-25 Mg Tab] 1 EAC PO SCH (09:00)
[2017-08-31] MEDS ORDERED: NON-FORMULARY MEDICATION (Ranitidine Hcl [Ranitidine Hcl] 300 MG) PO SCH (09:00)
[2017-08-31] MEDS: TRADJENTA PO SCH (09:48)
[2017-08-31] MEDS: PROZAC PO SCH ×2 (09:48→21:03)
[2017-08-31] MEDS: TOPROL XL PO SCH (09:49)
[2017-08-31] MEDS: HYZAAR 50-12.5 MG TAB PO SCH (09:49)
[2017-08-31] MEDS: ZANTAC PO SCH ×2 (09:50→21:03)
[2017-08-31] MEDS: NON-FORMULARY MEDICATION (Bupropion Hcl [Bupropion Xl] 300 MG) PO SCH (10:00)
[2017-08-31] MEDS ORDERED: LOVENOX SUBCUT SCH (21:00)
[2017-08-31] MEDS ORDERED: LIPITOR PO SCH (21:00)
[2017-08-31] MEDS ORDERED: QUETIAPINE FUMARATE 100 MG PO SCH (21:00)
[2017-08-31] MEDS ORDERED: SEROQUEL PO SCH (21:00)
[2017-09-01] MEDS: HYZAAR 50-12.5 MG TAB PO SCH (09:06)
[2017-09-01] MEDS: NON-FORMULARY MEDICATION (Bupropion Hcl [Bupropion Xl] 300 MG) PO SCH (09:06)
[2017-09-01] MEDS: PROZAC PO SCH (09:07)
[2017-09-01] MEDS: ZANTAC PO SCH (09:07)
[2017-09-01] MEDS: TRADJENTA PO SCH (09:07)
[2017-09-01] MEDS: TOPROL XL PO SCH (09:07)
--- NOTE | 2017-09-01 09:15 | STRESSECHO ---
Date of Test: 09/01/17 Reason for Exam: CHEST PAIN, HYPERLIPIDEMIA, HYPERTENSION Ordering Physician: JENNIFER HOOKS Current Medications: TYLENOL, LIPITOR, VALIUM, LOVENOX, PROZAC, HYZAAR, TRADJENTA, TOPROL, BUPROPION, SEROQUEL, ZANTAC Physical Findings: S1, S2, NO S3 Resting EKG: SINUS RHYTHM/ NO ACUTE CHANGES Target Heart Rate: 138/163 STAGE MPH/GRADE HEART RATE BPM BLOOD PRESSURE mmhg RHYTHM S-T SEGMENT +/- UP DOWN SYMPTOMS,COMMENTS At Rest 64 118/72 SR X NONE 1 1.7/10% 2 2.5/12% 3 3.4/14% 4 4.2/16% 5 5.0/18% Immediately after 110 SR X SHORT OF BREATH Durations of Exercise: 2:19 Maximum Heart Rate Reached: 110 Reason for Termination: SHORT OF BREATH 2 MINUTES POST EXERCISE: HR 71 BPM, BP 142/80 MMHG, SINUS RHYTHM, +/-, NO COMMENTS 4 MINUTES POST EXERCISE: HR 64 BPM, BP 122/68 MMHG, SINUS RHYTHM, +/-, NO COMMENTS INTERPRETATION: 98% OXYGEN SATURATION WITH EXERCISE METS 4.6 1. NO EVIDENCE OF ISCHEMIA FROM HEART RATE 64 BPM TO 110 BPM 2. NO ARRHYTHMIAS 3. BLOOD PRESSURE RESPONSE: NORMAL 4. NO CHEST PAIN OR DISCOMFORT 5. EXERCISE TOLERANCE LOW LEFT VENTRICULAR CONTRACTILITY-NORMAL RESTING AND POST EXERCISE COPY TO KARTHIKEYAN MATHIAS
[2017-09-01 10:42] VITALS: BP 137/71; TEMP 98.6
--- NOTE | 2017-09-05 10:58 | ECHO2D ---
Date of Exam: 09/01/17 Ordering Physician: JENNIFER HOOKS Room #: [id number] Reason for Echo: CHEST PAIN M-Mode Normal Adult Results LV Dimensions Normal Adult Results AoV Opening excursions >1.6 1.4 LVEDD-base- 3.5-5.8 4.3 Ao root dimensions 2.0-3.7 3.0 LVESD-base- 3.1-4.6 L. Atrium dimensions 1.9-3.8 4.0 Post. Wall thickness 0.8-1.1 1.0 IV septum (thickness) 0.7-1.2 1.1 Post. Wall excursion 0.72-1.3 NORMAL Septal motion NORMAL Systolic motion R. Ventricular cavity 1.5-2.0 NORMAL LVEF 60% 56% Paradoxical septal wall motion NORMAL 2-D : 2-D M Mode Echocardiogram was performed using apical four chamber and left parasternal long and short axis views. Mitral, tricuspid and aortic valves appear to be normal. Contractility of the left ventricle seems to be normal, so is the cavity size. Left atrial cavity size and aortic root appear to be normal. There is no pericardial effusion. There is no thrombus noted in the left ventricular or left aortic cavity. No mitral valve prolapse noted. M-MODE: MV: NORMAL AV: CALCIFIC AORTIC VALVES TV: NORMAL PV: NORMAL CHAMBER SIZE: NORMAL WALL MOTION: NORMAL PERICARDIUM: NORMAL INTERPRETATION: 1. NORMAL 2 "D" "M" MODE ECHO 2. CALCIFIC AORTIC VALVES COPY TO RAMOS MATHIAS
--- NOTE | 2017-09-05 11:00 | ECHOSTRESS ---
Date of Exam: 09/01/17 Ordering Physician: JENNIFER HOOKS Reason for Echo: CHEST PAIN, STRESS TEST--NO ISCHEMIA M-Mode Normal Adult Results LV Dimensions Normal Adult Results AoV Opening excursions >1.6 LVEDD-base- 3.5-5.8 Ao root dimensions 2.0-3.7 LVESD-base- 3.1-4.6 L. Atrium dimensions 1.9-3.8 Post. Wall thickness 0.8-1.1 IV septum (thickness) 0.7-1.2 Post. Wall excursion 0.72-1.3 Septal motion Systolic motion R. Ventricular cavity 1.5-2.0 LVEF 60% Paradoxical septal wall motion 2-D: NORMAL LEFT VENTRICULAR CONTRACTILITY--RESTING AND POST EXERCISE M-MODE: MV: AV: TV: PV: CHAMBER SIZE: WALL MOTION: NORMAL LEFT VENTRICULAR CONTRACTILITY--RESTING AND POST EXERCISE PERICARDIUM: INTERPRETATION: 1. NORMAL LEFT VENTRICULAR CONTRACTILITY--RESTING AND POST EXERCISE MTDD
--- NOTE | 2017-09-05 13:33 | CONS ---
DATE OF CONSULTATION: 08/31/17 REASON FOR CONSULTATION: Chest pain HISTORY OF PRESENT ILLNESS: 57 year old white female was seen in the emergency room. She came to the emergency room with having chest pain, feeling like somebody is sitting on her chest. The patient also had some nonspecific complaints. The pain is not exertional. REVIEW OF SYSTEMS: CONSTITUTIONAL: No night sweats. Fatigue and weakness. No fever or chills. HEENT: Eyes: No visual changes. No eye pain. No eye discharge. ENT: No sinus drainage. No epistaxis. No sinus pain. No sore throat. No odynophagia. No ear pain. No congestion. RESPIRATORY: No cough, no congestion. No hemoptysis. Shortness of breath at times. CARDIOVASCULAR: No angina symptoms. No CHF symptoms. No atypical chest pain for CAD. No palpitations. No orthopnea. Chest heaviness, tightness and steady ache right in the center of the chest not radiating to any other part of the body. Non-exertional. GASTROINTESTINAL: No abdominal pain. No nausea or vomiting. No diarrhea or constipation. No hematemesis. No hematochezia. GENITOURINARY: No urgency. No frequency. No dysuria. No hematuria. No obstructive symptoms. No discharge. No pain. No significant abnormal bleeding. MUSCULOSKELETAL: No musculoskeletal pain. No joint swelling. NEUROLOGICAL: No headache. No neck pain. No syncope. No seizures. No dizziness. PSYCHIATRIC: Not anxious. No depression. No suicidal thoughts. No homicidal thoughts. SKIN: No rash. No lesions. No wounds. ENDOCRINE: No unexplained weight loss. No weight gain. HEMATOLOGIC/LYMPHATIC: No anemia. No purpura. No petechiae. No prolonged or excessive bleeding. No palpable lymph nodes. ALLERGIES: No known allergies. SOCIAL/PERSONAL/FAMILY HISTORY: The patient used to smoke, quit 6 months ago. Denies of any alcohol abuse or any drug use. PHYSICAL EXAMINATION: GENERAL: The patient is oriented to time, place and person. VITAL SIGNS: Temperature 98, pulse 60, respiratory rate 20, blood pressure 117/ 70 and pulse ox 96%. HEENT: Head normocephalic, atraumatic. Eyes: Extraocular muscles are intact. Pupils are equal, round and reactive to light and accommodation. Ears: No lesions. Nose appeared normal. Throat: No exudate or erythema. NECK: Supple. No JVD, no carotid bruit. No lymphadenopathy or thyromegaly. LUNGS: Decreased breath sounds but clear to auscultation. Percussion note normal. Chest symmetrical. HEART: S1, S2, no S3. No murmurs. No cyanosis or clubbing. No ascites. Pulses: Dorsalis pedis and posterior tibial pulses +1 to +2 both sides. ABDOMEN: Soft. Nontender. Bowel sounds active. No CVA tenderness. No mass felt. EXTREMITIES: No edema. Full range of motion of all extremities, equal. NEUROLOGIC: No focal deficit. Cranial nerves II through XII are grossly intact. No headache, no double vision or headache. SKIN: Not dry. Intact. Turgor - normal. LYMPHATIC: No palpable lymph nodes/no lymphedema. MUSCULOSKELETAL: Normal joints with no swelling. Muscle tone is normal. LABS: EKG sinus rhythm with no acute changes. Hgb 13, hct 38, WBC 16,000, potassium 3.3, creatinine 1.2, BUN 11, CK-MB negative, Troponin negative. ASSESSMENT: 1. Chest pain seems to be noncardiac and non-exertional, center of the chest. Profile obvious risk factors smoking, BMI of 37, sedentary lifestyle and family history of heart disease, lipid profile unknown. RECOMMENDATIONS: 1. EKG 2. Continue to monitor cardiac markers 3. The patient's telemetry shows sinus rhythm with no ST-T wave change 4. EKG sinus rhythm with no acute changes 5. The patient is up and about in the hospital with no symptoms 6. Will do echocardiogram to evaluate LV function in the morning 7. Will do stress echo to rule out coronary insufficiency. CONDITION: Stable Thanks for referral, will follow. STEW
--- NOTE | 2017-09-15 13:58 | CONS ---
DATE OF SERVICE: 09/01/17 CONSULT FOLLOWUP REASON FOR CONSULT: Chest pain. REVIEW OF SYSTEMS: CONSTITUTIONAL: No night sweats. No fatigue, malaise, lethargy. No fever or chills. HEENT: Eyes: No visual changes. No eye pain. No eye discharge. ENT: No runny nose. No epistaxis. No sinus pain. No sore throat. No odynophagia. No ear pain. No congestion. RESPIRATORY: No cough, no congestion. No hemoptysis. CARDIOVASCULAR: No angina symptoms. No CHF symptoms. No atypical chest pain for CAD. No palpitations. No shortness of breath. GASTROINTESTINAL: No abdominal pain. No nausea or vomiting. No diarrhea or constipation. No hematemesis. No hematochezia. GENITOURINARY: No urgency. No frequency. No dysuria. No hematuria. No obstructive symptoms. No discharge. No pain. No significant abnormal bleeding. MUSCULOSKELETAL: No musculoskeletal pain. No joint swelling. No arthritis. NEUROLOGICAL: No headache. No neck pain. No syncope. No seizures. No dizziness. PSYCHIATRIC: Not anxious. No depression. No suicidal thoughts. No homicidal thoughts. SKIN: No rash. No lesions. No wounds. ENDOCRINE: No unexplained weight loss. No weight gain. HEMATOLOGIC/LYMPHATIC: No anemia. No purpura. No petechiae. No prolonged or excessive bleeding. No palpable lymph nodes. PHYSICAL EXAMINATION: GENERAL: The patient is oriented to time, place and person. VITAL SIGNS: Temperature 98, pulse 60, respiratory 15, blood pressure 120/70 and pulse ox 96%. HEENT: Head normocephalic, atraumatic. Eyes: Extraocular muscles are intact. Pupils are equal, round and reactive to light and accommodation. Ears: No lesions. Nose appeared normal. Throat: No exudate or erythema. NECK: Supple. No JVD, no carotid bruit. No lymphadenopathy or thyromegaly. LUNGS: Decreased breath sounds but clear to auscultation. Percussion note normal. Chest symmetrical. HEART: S1, S2, no S3. No murmurs. No cyanosis or clubbing. No ascites. Pulses: Dorsalis pedis and posterior tibial pulses +1 to +2 both sides. ABDOMEN: Soft. Nontender. Bowel sounds active. No CVA tenderness. No mass felt. EXTREMITIES: No edema. Full range of motion of all extremities, equal. NEUROLOGIC: No focal deficit. Cranial nerves II through XII are grossly intact. No headache, no double vision or headache. SKIN: Not dry. Intact. Turgor - normal. LYMPHATIC: No palpable lymph nodes/no lymphedema. MUSCULOSKELETAL: Normal joints with no swelling. Muscle tone is normal. LABS: EKG sinus rhythm, no acute changes. Cardiac markers negative. The patient is up and about no symptoms of coronary insufficiency. Telemetry sinus rhythm, no ST- T wave change. Stress test done this morning which showed during the time the patient was on Treadmill the patient didn't have any chest pain, no ST-T wave changes noted on the monitor. No arrhythmias. Oxygen saturation remains stable and normal. Resting echo showed normal LV contractility. Post exercise normal LV contractility. Post exercise the patient felt fine considering the patient's history. No indication of any coronary insufficiency with stress echo. Very likely the patient's chest pain is noncardiac. The patient's explained about coronary artery disease and the risk factors. Continue Atorvastatin. The non HDL goal should be 100. ASSESSMENT: 1. Chest pain seems to be noncardiac, seems to be at rest off and on no exertional chest discomfort. RECOMMENDATIONS: 1. Counseling for smoking done. 2. Strongly advised to quit smoking 3. BMI is close to morbid obesity. The patient's weight loss and Diet counseling done. 4. Blood pressure goal should be 135/85 or under, discussed with the patient. 5. Strongly advised followup with primary care Amanda. Britt and patient agreed. 6. The patient's cardiovascular status is stable. Thanks for referral. STEW
--- NOTE | 2017-09-15 13:59 | PN ---
The first day like seen on 08/31/17 Second day 09/01/17 Extensive. MTDD
--- NOTE | 2017-09-25 11:07 | PN ---
DATE OF SERVICE: 08/31/17 SUBJECTIVE: The patient was admitted with left sided chest pain. The patient is pain free. PHYSICAL EXAMINATION: V/S: Blood pressure 135/85, respiratory rate 20, heart rate 60, temperature 98.0. HEENT: Normocephalic, atraumatic. Mucosa dry. NECK: Supple. No JVD, no carotid bruit. No lymphadenopathy. LUNGS: Clear to auscultation. No rales or rhonchi. HEART: S1, S2 normal. No S3. No murmur, gallop or regurgitation. ABDOMEN: Soft, nontender. Bowel sounds active. No rigidity. No rebound or guarding. No CVA tenderness. EXTREMITIES: No clubbing, cyanosis or pedal edema. MUSCULOSKELETAL: No joint swelling. NEUROLOGIC: Awake, alert, oriented times three. No focal deficit. LYMPHATIC: No lymph nodes palpable. SKIN: Intact. LABS: White count 16.21, hemoglobin 13, hematocrit 38.5, platelet count 281, sodium 141, potassium 3.4, chloride 105, bicarb 28, BUN 10, creatinine 1.19. ASSESSMENT: 1. CHEST PAIN, RULE ACUTE CORONARY SYNDROME 2. DIABETES 3. HYPERTENSION 4. DYSLIPIDEMIA 5. OBESITY PLAN: 1. Cardiology consultation. 2. TSH, lipid, A1C. 3. Lifestyle modification and weight loss was discussed with the patient. She verbalized understanding. TIME SPENT: More than 35 minutes today STEW
--- NOTE | 2017-09-25 11:25 | DS ---
DATE OF SERVICE: 09/01/17 FINAL DIAGNOSIS: 1. CHEST PAIN, NONCARDIAC 2. GERD 3. HYPERTENSION 4. DYSLIPIDEMIA 5. ANXIETY 6. DEPRESSION 7. SCHIZOPHRENIA, SEES DR. LUDA ABBOTT 8. SPLENECTOMY 9. NICOTINE USE 10. DIABETES PLAN: 1. Discharge the patient home. 2. Follow up with [facility]. 3. Diet: Cardiac and healthy. 4. Activity: As much as tolerated. DISEASE SPECIFIC EDUCATION: About the diabetes, chest pain and risk of coronary artery disease was discussed. HOSPITAL COURSE: Ekaterina Duncan who is a 57 year old female who came to the emergency room with left sided chest pain and tightness. She had some shortness of breath. [facility] EMT brought the patient to the emergency room. Initial cardiac enzymes and Troponins were negative. EKG showed right bundle branch block, which was new for the patient. With a DORA score of 3, the patient was admitted to observation to rule out acute coronary syndrome. Dr. Izaguirre consultation was obtained. Cardizem was started. Stress echo was negative for the ST-T wave changes and ischemia. Cholesterol was high at 209. Lifestyle modification and weight loss was discussed. Meanwhile, the patient was pain free and did not have any problems. At that time, discharge plan was made and the patient is being [facility] back to [facility]. All the test will be sent to her, PMD for her review. The patient is already taking Lipitor and was advised to double the dose of the Lipitor in view of total triglycerides 206, total cholesterol 139. LDL 66, so she was advised to take Lipitor 20 mg and Fish Oil over the counter. TIME SPENT: MORE THAN 65 MINUTES TODAY [facility]
== END 2017-09-01 16:00 | disposition home or self-care (01) ==
LOC: ED 19:54 → MEDSURG B 22:59 → INTOOBSV 22:59
PROVIDERS: ADMIT Emergency Medicine; ATTEND Emergency Medicine
DX: R07.89 Other chest pain (principal); R06.02 Shortness of breath; I45.10 Unspecified right bundle-branch block; R79.89 Other specified abnormal findings of blood chemistry; K21.9 Gastro-esophageal reflux disease without esophagitis; I10 Essential (primary) hypertension; E78.5 Hyperlipidemia, unspecified; F41.8 Other specified anxiety disorders; F20.9 Schizophrenia, unspecified; E11.9 Type 2 diabetes mellitus without complications; E66.9 Obesity, unspecified; Z82.49 Family history of ischemic heart disease and other diseases of the circulatory system; Z68.37 Body mass index [BMI] 37.0-37.9, adult; Z79.899 Other long term (current) drug therapy; Z72.0 Tobacco use; Z90.81 Acquired absence of spleen
CPT/HCPCS: 36415; 80053; 80061; 80306; 81001; 82550; 82553; 83880; 84439; 84443; 84484; 85007; 85025; 85379; 87086; 93005; 93010; 99284

== ENCOUNTER 2018-06-19 11:08 | Outpatient (CLI) ==
--- NOTE | 2018-06-20 09:57 | MAMMO ---
EXAM: Digital screening mammogram with tomosynthesis HISTORY: Screening COMPARISON: 12/29/2016 FINDINGS: Digital MLO and CC views of the right and left breast were performed. Tomosynthesis was performed. Computer aided detection utilized. There are scattered fibroglandular densities. There is no evidence for mass, asymmetry, distortion, or suspicious calcifications in either breast. IMPRESSION: 1. No evidence of malignancy in the right or left breast. 2. Annual screening mammogram is recommended in one year. BIRADS category 1, negative examination
== END 2018-06-19 11:09 | disposition home or self-care (01) ==
LOC: RAD 11:08
PROVIDERS: ATTEND Physician Assistant Medical
DX: Z12.31 Encounter for screening mammogram for malignant neoplasm of breast (principal)
CPT/HCPCS: 77067

== ENCOUNTER 2018-09-13 15:37 | Emergency (ER) ==
[2018-09-13 15:40] VITALS: BP 141/79; TEMP 98.6; BMI 30.5
--- NOTE | 2018-09-13 16:29 | ED.PDOC ---
General ED Provider: Dr. CHE MURO Chief Complaint: Non-specific Complaint Stated Complaint: Pain in Rt posterior thigh and Hip. Present for several weeks. Has attempted to see her provider at [facility] in [place] but no appointment for 4 weeks. Has pain from lower back to buttocks into posterior thigh down to knee. Denies Lower extremity weakness or paresthesia Time Seen by Physician: 16:20 Mode of Arrival: Walk-In Information Source: Patient Exam Limitations: No limitations Primary Care Provider: HEMALATHA NAPIER Nursing and Triage Documentation Reviewed and Agree: Yes Does patient meet sepsis criteria?: No System Inflammatory Response Syndrome: Not Applicable Sepsis Protocol: For patient's 13 years and over: Temp is 96.8 and below OR 101 and greater Pulse >90 BPM Resp >20/minute Acutely Altered Mental Status Are patient's symptoms suggestive of a new infection, such as: -Pneumonia -Skin, Soft Tissue -Endocarditis -UTI -Bone, Joint Infection -Implantable Device -Acute Abdominal Infection -Wound Infection -Meningitis -Blood Stream Catheter Infection -Unknown Musculoskeletal Complaint Exam - Hip/Pelvis Complaint/Exam Location of Pain: Reports: Right, Hip Mechanism of Injury: Reports: No known trauma Symptoms Are: Still present Initial Severity: Moderate Current Severity: Mild Location: Reports: Diffuse Character: Reports: Dull, Aching Aggravating: Reports: Movement, Weight bearing Alleviating: Reports: Rest Associated Signs and Symptoms: Denies: Swelling, Redness, Bruising, Fever, Weakness, Dizziness, Syncope, Abdominal pain, Knee pain Able to Bear Weight: Yes Septic Arthritis Risk Factors: Reports: None Related Surgical History: Reports: None Pelvis Palpation: Stable Tenderness: Present: Right, PSIS, Greater Trochanter Range of Motion Limited In: Present: External rotation NV Bundle Intact Distal to Injury: Yes Differential Diagnoses: Arthritis, Sciatica, Strain, Other (trochanteric bursitis) - Lower Extremity Complaint/Exam Location of Pain: Reports: Right, Thigh Mechanism of Injury: Reports: No known trauma Onset/Duration: 4 wks Symptoms Are: Worse Initial Severity: Mild Current Severity: Moderate Location: Reports: Discrete Character: Reports: Aching Alleviating: Reports: Rest Aggravating: Reports: Movement, Weight bearing Able to Bear Weight: Yes Associated Signs and Symptoms: Denies: Swelling, Redness, Bruising, Fever, Weakness, Numbness, Tingling DVT Risk Factors: Reports: None Septic Arthritis Risk Factors: Reports: None Related Surgical History: Reports: None Review of Systems - Review Of Systems Constitutional: Reports: No symptoms Eyes: Reports: No symptoms Ears, Nose, Mouth, Throat: Reports: No symptoms Respiratory: Reports: No symptoms Cardiac: Reports: No symptoms GI: Reports: No symptoms : Reports: No symptoms Musculoskeletal: Reports: No symptoms, Back pain, Joint pain (rt hip) Skin: Reports: No symptoms Neurological: Reports: No symptoms Endocrine: Reports: No symptoms Hematologic/Lymphatic: Reports: No symptoms All Other Systems: Reviewed and Negative Past Medical History - Past Medical History Previously Healthy: Yes Endocrine: Reports: Dyslipidemia Cardiovascular: Reports: Hypertension Respiratory: Reports: None Hematological: Reports: None Gastrointestinal: Reports: GERD Genitourinary: Reports: CKD (Stage 3) Neuro/Psych: Reports: Anxiety, Depression, Bipolar Disorder Musculoskeletal: Reports: None Cancer: Reports: None Last Menstrual Period: N/A Other Pertinent Past Medical History: Valcular problems - Surgical History General Surgical History: Reports: Other (Spleenectomy, c-sxn x2) - Family History Family History: Reports: Unknown - Social History Smoking Status: Former smoker Hx Substance Use: No (pt reports stopped smoking 2 mo ago.) Alcohol Screening: None - Immunizations Tetanus Shot up to Date: No Influenza Vaccine within 12 Months: No Pneumococcal Vaccine up to Date: No Physical Exam - Physical Exam Appearance: Obese Ill-appearing: None Pain Distress: None Eyes: MILKA, EOMI, Conjunctiva clear ENT: Ears normal, Nose normal, Oropharynx normal Neck: Supple Respiratory: Airway patent, Breath sounds clear, Breath sounds equal, Respirations nonlabored Cardiovascular: RRR, Pulses normal, No rub, No murmur GI/: Soft, Nontender, No masses, Bowel sounds normal, No Organomegaly Musculoskeletal: ROM intact, No edema, No calf tenderness Neurological: Sensation intact, Motor intact, Reflexes intact, Cranial nerves intact, Alert, Oriented Psychiatric: Affect appropriate, Mood appropriate Critical Care Note - Critical Care Note Total Time (mins): 0 Course - Course Orders, Labs, Meds: Orders Category Date Time Status CT HIP RIGHT WITHOUT CONTRAST Stat RADS 09/13/18 16:[address] LUMBAR SPINE W/O CONTRAST Stat RADS 09/13/18 16:45 Completed Vital Signs: Temp Pulse Resp BP Pulse Ox 09/13/18 15:38 98.6 F 59 L 18 141/79 H 97 Departure - Departure Time of Disposition: 17:25 Disposition: HOME SELF-CARE Discharge Problem: Lipoma, Arthritis of hip, Trochanteric bursitis of right hip, Sciatica Instructions: Hip Bursitis (ED), Sciatica (ED), Lower Back Exercises (ED), Lipoma (ED), Soft Tissue Mass (ED) Condition: Pt referred to PMD for follow-up: Yes IPMP verified?: No Additional Instructions: General ED Provider: Dr. CHE MURO Chief Complaint: Non-specific Complaint Stated Complaint: Pain in Rt posterior thigh and Hip. Present for several weeks. Has attempted to see her provider at [facility] in [place] but no appointment for 4 weeks. Has pain from lower back to buttocks into posterior thigh down to knee. Denies Lower extremity weakness or paresthesia Time Seen by Physician: 16:20 Mode of Arrival: Walk-In Information Source: Patient Exam Limitations: No limitations Primary Care Provider: HEMALATHA NAPIER Nursing and Triage Documentation Reviewed and Agree: Yes Does patient meet sepsis criteria?: No System Inflammatory Response Syndrome: Not Applicable Sepsis Protocol: For patient's 13 years and over: Temp is 96.8 and below OR 101 and greater Pulse >90 BPM Resp >20/minute Acutely Altered Mental Status Are patient's symptoms suggestive of a new infection, such as: -Pneumonia -Skin, Soft Tissue -Endocarditis -UTI -Bone, Joint Infection -Implantable Device -Acute Abdominal Infection -Wound Infection -Meningitis -Blood Stream Catheter Infection -Unknown Musculoskeletal Complaint Exam - Hip/Pelvis Complaint/Exam Location of Pain: Reports: Right, Hip Mechanism of Injury: Reports: No known trauma Symptoms Are: Still present Initial Severity: Moderate Current Severity: Mild Location: Reports: Diffuse Character: Reports: Dull, Aching Aggravating: Reports: Movement, Weight bearing Alleviating: Reports: Rest Associated Signs and Symptoms: Denies: Swelling, Redness, Bruising, Fever, Weakness, Dizziness, Syncope, Abdominal pain, Knee pain Able to Bear Weight: Yes Septic Arthritis Risk Factors: Reports: None Related Surgical History: Reports: None Pelvis Palpation: Stable Tenderness: Present: Right, PSIS, Greater Trochanter Range of Motion Limited In: Present: External rotation NV Bundle Intact Distal to Injury: Yes Differential Diagnoses: Arthritis, Sciatica, Strain, Other (trochanteric bursitis) - Lower Extremity Complaint/Exam Location of Pain: Reports: Right, Thigh Mechanism of Injury: Reports: No known trauma Onset/Duration: 4 wks Symptoms Are: Worse Initial Severity: Mild Current Severity: Moderate Location: Reports: Discrete Character: Reports: Aching Alleviating: Reports: Rest Aggravating: Reports: Movement, Weight bearing Able to Bear Weight: Yes Associated Signs and Symptoms: Denies: Swelling, Redness, Bruising, Fever, Weakness, Numbness, Tingling DVT Risk Factors: Reports: None Septic Arthritis Risk Factors: Reports: None Related Surgical History: Reports: None Review of Systems - Review Of Systems Constitutional: Reports: No symptoms Eyes: Reports: No symptoms Ears, Nose, Mouth, Throat: Reports: No symptoms Respiratory: Reports: No symptoms Cardiac: Reports: No symptoms GI: Reports: No symptoms : Reports: No symptoms Musculoskeletal: Reports: No symptoms, Back pain, Joint pain (rt hip) Skin: Reports: No symptoms Neurological: Reports: No symptoms Endocrine: Reports: No symptoms Hematologic/Lymphatic: Reports: No symptoms All Other Systems: Reviewed and Negative Past Medical History - Past Medical History Previously Healthy: Yes Endocrine: Reports: Dyslipidemia Cardiovascular: Reports: Hypertension Respiratory: Reports: None Hematological: Reports: None Gastrointestinal: Reports: GERD Genitourinary: Reports: CKD (Stage 3) Neuro/Psych: Reports: Anxiety, Depression, Bipolar Disorder Musculoskeletal: Reports: None Cancer: Reports: None Last Menstrual Period: N/A Other Pertinent Past Medical History: Valcular problems - Surgical History General Surgical History: Reports: Other (Spleenectomy, c-sxn x2) - Family History Family History: Reports: Unknown - Social History Smoking Status: Former smoker Hx Substance Use: No (pt reports stopped smoking 2 mo ago.) Alcohol Screening: None - Immunizations Tetanus Shot up to Date: No Influenza Vaccine within 12 Months: No Pneumococcal Vaccine up to Date: No Physical Exam - Physical Exam Appearance: Obese Ill-appearing: None Pain Distress: None Eyes: MILKA, EOMI, Conjunctiva clear ENT: Ears normal, Nose normal, Oropharynx normal Neck: Supple Respiratory: Airway patent, Breath sounds clear, Breath sounds equal, Respirations nonlabored Cardiovascular: RRR, Pulses normal, No rub, No murmur GI/: Soft, Nontender, No masses, Bowel sounds normal, No Organomegaly Musculoskeletal: ROM intact, No edema, No calf tenderness Neurological: Sensation intact, Motor intact, Reflexes intact, Cranial nerves intact, Alert, Oriented Psychiatric: Affect appropriate, Mood appropriate Course - Course Orders, Labs, Meds: Orders Category Date Time Status CT HIP RIGHT WITHOUT CONTRAST Stat RADS 09/13/18 16:[address] LUMBAR SPINE W/O CONTRAST Stat RADS 09/13/18 16:45 Ordered Vital Signs: Temp Pulse Resp BP Pulse Ox 09/13/18 15:38 98.6 F 59 L 18 141/79 H 97 Departure - Departure Time of Disposition: 17:25 Discharge Problem: Lipoma, Arthritis of hip, Trochanteric bursitis of right hip, Sciatica Instructions: Sciatica (ED), Lower Back Exercises (ED), Hip Bursitis (ED), Lipoma (ED), Soft Tissue Mass (ED) Condition: Pt referred to PMD for follow-up: Yes Allergies/Adverse Reactions: Allergies No Known Allergies Allergy (Verified 09/13/18 15:40) Home Medications: Ambulatory Orders Atorvastatin Calcium [Lipitor] 20 mg PO BEDTIME 03/31/14 Fluoxetine HCl 20 mg PO BID 03/31/14 Ranitidine HCl 300 mg PO BID 03/31/14 Metoprolol Succinate 50 mg PO DAILY 06/07/15 Bupropion HCl [Bupropion Xl] 300 mg PO DAILY 05/30/17 Diazepam 5 mg PO TID PRN 05/30/17 Linagliptin [Tradjenta] 5 mg PO DAILY 05/30/17 Quetiapine Fumarate [Seroquel] 100 mg PO BEDTIME 05/30/17 Losartan/Hydrochlorothiazide [Losartan-Hctz 100-25 mg Tab] 1 each PO DAILY 08/30 See your PCP for arrangements to have lesion on rt thigh removed and have Rt hip /lumbar spine re evaluated Self referral to [facility] in [place], May apply ice to rt hip for pain May take Ibuprofen for pain Allergies/Adverse Reactions: Allergies No Known Allergies Allergy (Verified 09/13/18 15:40) Home Medications: Ambulatory Orders Atorvastatin Calcium [Lipitor] 20 mg PO BEDTIME 03/31/14 Fluoxetine HCl 20 mg PO BID 03/31/14 Ranitidine HCl 300 mg PO BID 03/31/14 Metoprolol Succinate 50 mg PO DAILY 06/07/15 Bupropion HCl [Bupropion Xl] 300 mg PO DAILY 05/30/17 Diazepam 5 mg PO TID PRN 05/30/17 Linagliptin [Tradjenta] 5 mg PO DAILY 05/30/17 Quetiapine Fumarate [Seroquel] 100 mg PO BEDTIME 05/30/17 Losartan/Hydrochlorothiazide [Losartan-Hctz 100-25 mg Tab] 1 each PO DAILY 08/30
--- NOTE | 2018-09-13 17:14 | CT ---
EXAM: CT right hip without contrast HISTORY: Right hip pain laterally TECHNIQUE: Multi-slice transaxial helical with coronal and sagittal reformed images COMPARISON: None FINDINGS: The femoral acetabular joint space is mildly narrowed with marginal osteophytes. There is mild osteophyte formation at the anterior inferior aspect of the right sacral joint space. No acute f racture or subluxation appreciated. The visible pelvic organs are grossly normal. No localized soft tissue abnormalities. The bones are free of suspicious osteolytic or osteoblastic lesions. IMPRESSION: 1. Mild femoral acetabular osteoarthritis. 2. No acute fracture or subluxation.
--- NOTE | 2018-09-13 17:21 | CT ---
Exam: CT lumbar spine without contrast History: Back pain Technique: [address] lumbar spine with multiplanar reformations FINDINGS: The lumbar spine shows degenerative anterior listhesis of L4 measuring 4 mm. Normal alignm ent otherwise. No fracture lines are seen. No immediate paravertebral soft tissue abnormalities. T he sacrum is intact. T12-L1: Mild posterior disc osteophyte with mild anterior sac indentation. No foraminal narrowing. L1-L2: No central canal or foraminal stenosis L2-L3: No central canal or foraminal stenosis L3-L4: Generalized disc bulge with minimal anterior sac indentation. Facet arthropathy with mild bi lateral foraminal narrowing. L4-L5: Degenerative anterior listhesis of L4 and generalized disc bulge. Mild anterior sac indentat ion. Facet arthropathy with moderate right and severe left foraminal narrowing. L5 S1: Bone on bone disc space narrowing with posterior endplate changes and minimal sac indentation. Facet enlargement is present bilaterally with moderate right and moderate to severe left foraminal narrowing. Impression: 1. No acute abnormality of the lumbar spine 2. Degenerative changes as described. No severe central canal narrowing. Moderate to severe lower lumbar foraminal narrowing as described.
== END 2018-09-13 17:41 | disposition home or self-care (01) ==
LOC: ED 15:37
DX: M16.10 Unilateral primary osteoarthritis, unspecified hip (principal); M70.61 Trochanteric bursitis, right hip; M54.40 Lumbago with sciatica, unspecified side; D17.9 Benign lipomatous neoplasm, unspecified
CPT/HCPCS: 99282

== ENCOUNTER 2018-10-07 14:40 | Emergency (ER) ==
[2018-10-07 14:44] VITALS: BP 119/78; TEMP 98.2; BMI 32.2
--- NOTE | 2018-10-07 14:57 | ED.PDOC ---
General ED Provider: Dr. CHE FAYE-ER Chief Complaint: Wound Check Stated Complaint: here to have wound checked Time Seen by Physician: 14:56 Mode of Arrival: Walk-In Information Source: Patient Exam Limitations: No limitations Primary Care Provider: HEMALATHA NAPIER Nursing and Triage Documentation Reviewed and Agree: Yes Does patient meet sepsis criteria?: No System Inflammatory Response Syndrome: Not Applicable Sepsis Protocol: For patient's 13 years and over: Temp is 96.8 and below OR 101 and greater Pulse >90 BPM Resp >20/minute Acutely Altered Mental Status Are patient's symptoms suggestive of a new infection, such as: -Pneumonia -Skin, Soft Tissue -Endocarditis -UTI -Bone, Joint Infection -Implantable Device -Acute Abdominal Infection -Wound Infection -Meningitis -Blood Stream Catheter Infection -Unknown Skin Complaint Exam - Skin/Soft Tissue Complaint/Exam Onset/Duration: several days Symptoms Are: Still present Initial Severity: Mild Current Severity: Mild Location: right posterior leg Character: Reports: Raised Aggravating: Reports: None Alleviating: Reports: None Associated Signs and Symptoms: Denies: Fever, Chills, Itching, Drainage, Bruising, Tenderness, Red streaks, Joint swelling Recent Exposure to Others w/Similar Symptoms: No Skin Findings: Present: Other Joint Tenderness Present: No Differential Diagnoses: Other Review of Systems - Review Of Systems Constitutional: Reports: No symptoms Eyes: Reports: No symptoms Ears, Nose, Mouth, Throat: Reports: No symptoms Respiratory: Reports: No symptoms Cardiac: Reports: No symptoms GI: Reports: No symptoms : Reports: No symptoms Musculoskeletal: Reports: No symptoms, Muscle pain Skin: Reports: No symptoms Neurological: Reports: No symptoms Endocrine: Reports: No symptoms Hematologic/Lymphatic: Reports: No symptoms All Other Systems: Reviewed and Negative Past Medical History - Past Medical History Previously Healthy: Yes Endocrine: Reports: Dyslipidemia Cardiovascular: Reports: Hypertension Respiratory: Reports: None Hematological: Reports: None Gastrointestinal: Reports: GERD Genitourinary: Reports: CKD (Stage 3) Neuro/Psych: Reports: Anxiety, Depression, Bipolar Disorder Musculoskeletal: Reports: None Cancer: Reports: None Last Menstrual Period: N/A Other Pertinent Past Medical History: Valcular problems - Surgical History General Surgical History: Reports: Other (Spleenectomy, c-sxn x2) - Family History Family History: Reports: Unknown - Social History Smoking Status: Former smoker Hx Substance Use: No (pt reports stopped smoking 2 mo ago.) Alcohol Screening: None - Immunizations Tetanus Shot up to Date: No Influenza Vaccine within 12 Months: No Pneumococcal Vaccine up to Date: No Physical Exam - Physical Exam Appearance: Well-appearing, No pain distress, Well-nourished Eyes: MILKA, EOMI, Conjunctiva clear ENT: Ears normal, Nose normal, Oropharynx normal Neck: Supple Respiratory: Airway patent, Breath sounds clear, Breath sounds equal, Respirations nonlabored Cardiovascular: RRR GI/: Soft, Nontender, No masses, Bowel sounds normal, No Organomegaly Musculoskeletal: Normal strength, ROM intact, No edema, No calf tenderness Skin: Warm, Dry, Normal color Neurological: Sensation intact, Motor intact, Reflexes intact, Cranial nerves intact, Alert, Oriented Psychiatric: Affect appropriate, Mood appropriate Critical Care Note - Critical Care Note Total Time (mins): 0 Course - Course Orders, Labs, Meds: wound edges well approximated---no drainage or infection noted Vital Signs: Temp Pulse Resp BP Pulse Ox 10/07/18 14:41 98.2 F 59 L 18 119/78 96 Departure - Departure Time of Disposition: 14:59 Disposition: HOME SELF-CARE Discharge Problem: Wound Instructions: Care For Your Stitches (ED) Condition: Good Pt referred to PMD for follow-up: No IPMP verified?: No Additional Instructions: continue wound care as outlnined by your surgeon Allergies/Adverse Reactions: Allergies No Known Allergies Allergy (Verified 10/07/18 14:44) Home Medications: Ambulatory Orders Atorvastatin Calcium [Lipitor] 20 mg PO BEDTIME 03/31/14 Fluoxetine HCl 20 mg PO BID 03/31/14 Ranitidine HCl 300 mg PO BID 03/31/14 Metoprolol Succinate 50 mg PO DAILY 06/07/15 Bupropion HCl [Bupropion Xl] 300 mg PO DAILY 05/30/17 Diazepam 5 mg PO TID PRN 05/30/17 Linagliptin [Tradjenta] 5 mg PO DAILY 05/30/17 Quetiapine Fumarate [Seroquel] 100 mg PO BEDTIME 05/30/17 Losartan/Hydrochlorothiazide [Losartan-Hctz 100-25 mg Tab] 1 each PO DAILY 08/30 Disposition Discussed With: Patient, Family
== END 2018-10-07 15:06 | disposition home or self-care (01) ==
LOC: ED 14:40
DX: S89.91XA Unspecified injury of right lower leg, initial encounter (principal)
CPT/HCPCS: 99282

== ENCOUNTER 2018-11-14 15:15 | Emergency (ER) ==
[2018-11-14 15:21] VITALS: BP 128/56; TEMP 98; BMI 32.5
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
== END 2018-11-14 22:12 | disposition home or self-care (01) ==
LOC: ED 15:15
DX: T42.4X2A Poisoning by benzodiazepines, intentional self-harm, initial encounter (principal); F32.9 Major depressive disorder, single episode, unspecified; F31.9 Bipolar disorder, unspecified; F41.9 Anxiety disorder, unspecified; N18.3 Chronic kidney disease, stage 3 (moderate); E78.5 Hyperlipidemia, unspecified; I10 Essential (primary) hypertension; F17.210 Nicotine dependence, cigarettes, uncomplicated; Z79.899 Other long term (current) drug therapy
CPT/HCPCS: 36415; 80053; 80306; 80307; 81001; 85007; 85025; 93005; 93010; 99284

== ENCOUNTER 2018-11-26 09:00 | Outpatient (CLI) ==
--- NOTE | 2018-11-26 11:55 | DI ---
Exam: Two views of the right knee. Comparison: None available. Reason for exam: Right leg pain. FINDINGS: No acute fracture or malalignment. Degenerative changes are seen with tricompartmental ar throsis and osteophyte formation. No large effusion. No unexplained calcific soft tissue density or radiopaque retained foreign body. Impression: 1. No acute fracture or dislocation is seen in the right knee. 2. Tricompartmental arthrosis with osteophyte formation
--- NOTE | 2018-11-26 11:56 | DI ---
EXAM: Two views of the right hip. History: Right hip pain. Comparison: CT of the right hip 09/13/2018 Findings: No acute fracture or dislocation. Right hip joint space is preserved. Mild enthesiopathy of the greater trochanter. Impression: No acute osseous abnormality
--- NOTE | 2018-11-26 12:00 | DI ---
Exam: Three views of the lumbar spine. Comparison: CT lumbar spine performed 09/13/2018. Reason for exam: Right leg pain. FINDINGS: Multilevel degenerative disease with intervertebral body disc space height narrowing and o steophyte formation. Similar appearing grade 1 anterior listhesis of four on L5 with intervertebral body disc space height loss. There is marked facet hypertrophy with moderate atherosclerotic disease . There is a normal appearing lumbar lordotic curve. Impression: Similar appearing multilevel degenerative disease without evidence of new fracture. Similar appearing grade 1 anterolisthesis of L4 on L5.
== END 2018-11-26 09:01 | disposition home or self-care (01) ==
LOC: RAD 09:00
PROVIDERS: ATTEND Physician Assistant
DX: M79.604 Pain in right leg (principal)

== ENCOUNTER 2018-12-10 09:19 | Outpatient (CLI) | END 2018-12-10 09:20 | disposition home or self-care (01) | LOC: LAB 09:19 | PROVIDERS: ATTEND Physician Assistant | DX: E83.52 Hypercalcemia (principal); R42 Dizziness and giddiness | CPT/HCPCS: 36415; 82310; 83970; 93005; 93010 ==

== ENCOUNTER 2019-01-10 13:01 | Outpatient (CLI) ==
--- NOTE | 2019-01-10 13:45 | US ---
EXAM: Thyroid ultrasound History: Hypercalcemia, difficulty swallowing. Technique: Multiple sonographic images through the thyroid gland were obtained. Color duplex Dopple r was used to interrogate vascular flow. Findings: The right lobe of the thyroid measures 6.6 cm x 3.2 cm x 2.6 cm and demonstrates multiple nodules wit h the largest being complex and mostly solid measuring 3.8 cm. The thyroid isthmus measures 0.7 cm in thickness. The left lobe of the thyroid measures 7.4 cm x 3.4 cm x 1.9 cm demonstrates multiple nodules with the largest being complex and mostly solid measuring 2.3 cm. The thyroid gland is hypervascular. No extrathyroidal masses are identified. Impression: Enlarged multinodular thyroid gland with dominant nodules as described above. Tissue sa mpling should be considered.
== END 2019-01-10 13:02 | disposition home or self-care (01) ==
LOC: RAD 13:01
PROVIDERS: ATTEND Physician Assistant
DX: E83.52 Hypercalcemia (principal)

== ENCOUNTER 2019-02-09 08:52 | Outpatient (CLI) | END 2019-02-09 08:53 | disposition home or self-care (01) | LOC: LAB 08:52 | PROVIDERS: ATTEND Physician Assistant Medical | DX: E83.52 Hypercalcemia (principal) | CPT/HCPCS: 81050 ==

== ENCOUNTER 2019-02-27 12:14 | Outpatient (CLI) ==
--- NOTE | 2019-02-27 13:17 | US ---
EXAM: Left lower extremity venous Doppler History: Left lower extremity pain and edema. Technique: Multiple sonographic images through the left lower extremity were obtained. Color duplex Doppler was used to interrogate vascular flow. 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 Impression: No sonographic evidence for deep venous thrombosis
== END 2019-02-27 12:15 | disposition home or self-care (01) ==
LOC: RAD 12:14
PROVIDERS: ATTEND Physician Assistant
DX: M79.652 Pain in left thigh (principal)

== ENCOUNTER 2019-03-12 11:55 | Outpatient (CLI) ==
--- NOTE | 2019-03-12 14:59 | MRI ---
EXAM: MRI left knee without contrast. HISTORY: Left knee pain. No left knee surgery reported.. TECHNIQUE: Using a local extremity coil on a high field strength magnet multiplanar multisequence ma gnet resonance imaging was attempted of the left knee without intravenous or intra-articular gadolini um contrast. Overall examination is of limited diagnostic quality secondary to motion degradation and decreased si [id number].. FINDINGS: I do not have prior radiographs of the left knee available for comparison at the time of t his dictation. Within the medial compartment there is abnormal size/morphology posterior horn medial meniscus just m edial to the root insertion compatible with tear. There is a dominant vertical tear component. Some loss of hoop containment with slight extrusion of a portion of the medial meniscal body. The joint centered chondrosis with areas of cartilage surface irregularity/attenuation/ulceration over the weig htbearing medial compartment. No underlying subchondral edema. Productive osteophyte formation. Within the lateral compartment the lateral meniscus is intact without discrete surfacing meniscal tea r. The lateral compartment cartilage relatively congruent without underlying subchondral edema. Pro ductive osteophyte formation. Within the patellofemoral compartment there is slight lateral subluxation of the patella with respect to the trochlear groove. Diffuse patellar chondrosis/chondromalacia patella with cartilage attenuat ion and surface irregularity. The trochlear groove cartilage congruent without underlying subchondra l edema. Productive osteophyte formation. Large left knee effusion. Prominent plica. Multiple filling defects seen. Question lipoma arboresc ens. Some superimposed tiny loose bodies not excluded. Synovitis.. Intact ACL and PCL ligamentous fibers. The extensor mechanism is intact. Anterior superficial soft tissue edema/swelling. The med ial collateral ligament intact albeit bowed medially. The lateral collateral ligament complex intact as is the posterolateral corner.. IMPRESSION: Tear posterior horn medial meniscus just medial to the root insertion. Some loss of mil p containment. Changes of tricompartmental osteoarthrosis as described. Large left effusion. Prominent plica. Synovitis. Multiple filling defects. Question lipoma arbore scens. Some superimposed tiny loose bodies not excluded. Intact cruciate and collateral ligaments. No discrete surfacing lateral meniscal tear identified.
== END 2019-03-12 11:56 | disposition home or self-care (01) ==
LOC: RAD 11:55
PROVIDERS: ATTEND Physician Assistant
DX: M25.562 Pain in left knee (principal)